=== PATIENT | male | born 1965 | race African-American/Black ===

== ENCOUNTER 2017-03-31 06:17 | Day surgery (SDC) | payer OTHER ==
[2017-03-31 07:24] LABS: HEMATOCRIT 38.5 % (42.0-54.0); MCH 31.7 pg (26.0-34.0); MCHC 33.8 g/dL (31.0-37.0); MCV 93.9 fL (80.0-100.0); MEAN PLATELET VOLUME 9.7 fL (7.4-10.4); RBC 4.1 10x6/uL (4.20-6.10); RDW 14.7 % (11.5-14.5); WBC 7.4 10x3/uL (4.8-10.8)
[2017-03-31] MEDS ORDERED: HYZAAR 100-12.51 TAB PO (07:28)
[2017-03-31] MEDS ORDERED: ENDOCET 10-3251 TAB PO (07:28)
[2017-03-31] MEDS ORDERED: K-DUR20 MEQ PO (07:29)
[2017-03-31] MEDS ORDERED: ZANTAC300 MG PO (07:29)
[2017-03-31] MEDS ORDERED: FUROSEMIDE20 MG PO (07:29)
[2017-03-31] MEDS ORDERED: METFORMIN HCL500 M1 PO (07:29)
[2017-03-31] MEDS ORDERED: PROTONIX40 MG PO (07:30)
[2017-03-31] MEDS ORDERED: LIPITOR10 MG PO (07:31)
[2017-03-31 07:37] VITALS: BP 126/84; BMI 35.5
[2017-03-31] MEDS ORDERED: METHOTREXATE2.5 MG PO (07:39)
[2017-03-31] MEDS ORDERED: FOLIC ACID1 MG PO (07:40)
[2017-03-31 07:41] LABS: CALCIUM 8.9 mg/dL (8.5-10.1); CARBON DIOXIDE 26.9 mmol/L (21.0-32.0); CREATININE - SERUM 1.2 mg/dL (0.6-1.3); POTASSIUM - SERUM 3.9 mmol/L (3.5-5.1)
--- NOTE | 2017-03-31 09:10 | NUR ---
PT REC'D TO ROOM VIA STRETCHER, AWAKE, RESPONDS TO VERBAL STIMULI.
--- NOTE | 2017-03-31 09:30 | NUR ---
PT TOLERATED FULL LIQ DIET.
--- NOTE | 2017-03-31 10:00 | NUR ---
IV D/C'D CATH INTACT.
--- NOTE | 2017-03-31 10:10 | NUR ---
D/C INSTRUCTIONS EXPLAINED TO PT. VOICED UNDERSTANDING. COPIES OF ALL GIVEN. D/C'D HOME VIA W/C TO PRIVATE CAR.
--- NOTE | 2017-04-02 14:40 | OP ---
PATIENT NAME: ANAI LOVE MEDICAL RECORD: [id number] :61 LOCATION:D.OPS ADMISSION DATE: SURGEON: LEONOR LITTLEJOHN DO DATE OF OPERATION: 03/31/2017 PROCEDURE: EGD with biopsies. INDICATIONS FOR PROCEDURE: Epigastric abdominal pain, dysphagia, heartburn. SCOPE: Olympus video gastroscope. MEDICATIONS: Propofol 150 mg IV per anesthesia. ESTIMATED BLOOD LOSS: Minimal. COMPLICATIONS: None. FINDINGS: Informed consent was given. The patient was made comfortable with the above medication. After reaching an adequate level of sedation by slow IV push, the patient was placed on his left side. The endoscope was then advanced under direct visualization through the mouth to the third portion of the duodenum. The entire esophagus appeared normal. At the GE junction, there was very mild evidence of Wood classification A reflux-induced esophagitis. The endoscope was advanced beyond the GE junction into the stomach and retroflexed to view the cardia, where a small sliding type hiatal hernia was present. Within the fundus, cardia, and upper body of the stomach, there were some petechial spots and some congestion consistent with possible gastritis. Random biopsies were taken throughout the entire stomach to submit for histology and to rule out H. pylori. The endoscope was advanced beyond the pylorus into the duodenum where the bulb, and entire examined duodenum appeared normal. The endoscope was then withdrawn from the patient. The patient tolerated the procedure well and there were no complications. IMPRESSION: 1. Wood classification A reflux-induced esophagitis. 2. Small sliding hiatal hernia. 3. Possible gastritis, biopsies pending. PLAN AND RECOMMENDATIONS: 1. Discharge home when recovery parameters are met. 2. Follow up biopsy specimen results and treat if indicated. 3. Continue current medications including Protonix 40 mg daily in the a.m. and ranitidine 300 mg p.o. at bedtime. 4. Could consider Carafate tablets in addition to above medication if symptoms worsen. 5. Consider referral to general surgery for antireflux surgery. 6. Consider pH study to determine extent and severity of reflux events. TRANSINT:[id number] Voice Confirmation ID: [id number] DOCUMENT ID: [id number] OPERATIVE REPORT [id number] GAGANDEEP LOVEDILeonardo Orourke LEONOR LITTLEJOHN DO at 1440 CC: [id number] DICTATION DATE: 03/31/1700 BUSINESS CONTINUITY STRATEGY DIRECTOR: 03/31/17 1125 [facility] [place] 03/31/17 [place] [id number] [place] [id number]
== END 2017-03-31 10:10 | disposition home or self-care (01) ==
LOC: D.OPS 06:17
PROVIDERS: Anesthesiology
DX: K21.0 Gastro-esophageal reflux disease with esophagitis (principal); K44.9 Diaphragmatic hernia without obstruction or gangrene; R13.10 Dysphagia, unspecified; R10.13 Epigastric pain; F17.200 Nicotine dependence, unspecified, uncomplicated; I10 Essential (primary) hypertension; E11.9 Type 2 diabetes mellitus without complications; G47.30 Sleep apnea, unspecified; M06.9 Rheumatoid arthritis, unspecified; Z01.812 Encounter for preprocedural laboratory examination

== ENCOUNTER 2017-04-07 06:57 | Day surgery (SDC) | payer OTHER ==
[~2017-04-07 06:57] MED LIST: ENDOCET 10-3251 TAB PO; FOLIC ACID1 MG PO; FUROSEMIDE20 MG PO; HYZAAR 100-12.51 TAB PO; K-DUR20 MEQ PO; LIPITOR10 MG PO; METFORMIN HCL500 M1 PO; METHOTREXATE2.5 MG PO; PROTONIX40 MG PO; ZANTAC300 MG PO
[2017-04-07 07:36] VITALS: BP 143/96; BMI 35.5
[2017-04-07 07:47] LABS: HEMATOCRIT 35.8 % (42.0-54.0); HEMOGLOBIN 12.1 g/dL (13.5-17.5); MCH 31.5 pg (26.0-34.0); MCHC 33.8 g/dL (31.0-37.0); MCV 93.2 fL (80.0-100.0); MEAN PLATELET VOLUME 10.3 fL (7.4-10.4); RBC 3.84 10x6/uL (4.20-6.10); RDW 14.7 % (11.5-14.5)
[2017-04-07 07:59] LABS: ANION GAP 13.8 mmol/L (8-16); CALCIUM 8.8 mg/dL (8.5-10.1); CARBON DIOXIDE 26.9 mmol/L (21.0-32.0); CREATININE - SERUM 1.3 mg/dL (0.6-1.3); POTASSIUM - SERUM 3.7 mmol/L (3.5-5.1)
--- NOTE | 2017-04-07 09:55 | NUR ---
0956 DISCHARGE INSTRUCTIONS COMPLETE. PT HAS NO QUESTIONS OR CONCERNS AT THIS TIME. NO PRESCRIPTIONS GIVEN. PT ESCORTED OUT BY VOLUNTEER.
--- NOTE | 2017-04-08 09:09 | OP ---
PATIENT NAME: ANAI LOVE MEDICAL RECORD: [id number] :61 LOCATION:D.OPS ADMISSION DATE: SURGEON: LEONOR LITTLEJOHN DO DATE OF OPERATION: 04/07/2017 PROCEDURE: Colonoscopy with polypectomy. INDICATIONS FOR PROCEDURE: Colorectal cancer screening. SCOPE: Olympus video pediatric colonoscope. MEDICATIONS: Propofol 500 mg IV per anesthesia. WITHDRAWAL TIME: 16 minutes. ESTIMATED BLOOD LOSS: Minimal. COMPLICATIONS: None. FINDINGS: Informed consent was given. The patient was made comfortable with the above medication. After reaching an adequate level of sedation by slow IV push, the patient was placed on his left side. A digital rectal examination was performed and was normal. The endoscope was then advanced under direct visualization through the rectum to the terminal ileum. The scope was slowly withdrawn and the mucosa was carefully examined. The prep quality was good. There were a total of 5 polyps removed on this examination. The first was located in the cecum. It was a benign appearing sessile polyp measuring approximately 4 mm in diameter. It was removed using a cold snare in 1 piece and completely retrieved. In the descending colon, there was a benign appearing sessile polyp, which measured approximately 4 mm in diameter. It was removed using hot forceps in 1 piece and completely retrieved. In the rectosigmoid colon, there were 3 benign-appearing sessile polyps, which ranged in size from 3 mm to 6 mm in diameter. They were all removed using a hot snare in 1 piece and completely retrieved. In the descending colon and sigmoid colon, there was mild diverticulosis consisting of a few small mouth diverticula. Retroflexion was performed in the rectum with visualization of medium sized internal hemorrhoids without bleeding. The scope was then unretroflexed and withdrawn from the patient. The patient tolerated the procedure well and there were no complications. IMPRESSION: 1. Mild diverticulosis. 2. Five separate polyps removed as described above. 3. Internal hemorrhoids. PLAN AND RECOMMENDATIONS: 1. Discharge home when recovery parameters are met. 2. Follow up biopsy specimen results. 3. High fiber diet. 4. Continue current medications. 5. Recall colonoscopy in 3 years for surveillance based on a personal history of polyps. TRANSINT:[id number] Voice Confirmation ID: [id number] DOCUMENT ID: [id number] OPERATIVE REPORT [id number] ANAI LOVE LEONOR LITTLEJOHN DO at 0909 CC: [id number] DICTATION DATE: 04/07/17 0901 SECURITIES SALES ASSOCIATE: 04/07/17 1126 [facility] 04/07/17 [place] [address] [place] [address]
== END 2017-04-07 09:56 | disposition home or self-care (01) ==
LOC: D.OPS 06:57
PROVIDERS: Internal Medicine Gastroenterology
DX: Z12.11 Encounter for screening for malignant neoplasm of colon (principal); K63.5 Polyp of colon; K64.8 Other hemorrhoids; K57.30 Diverticulosis of large intestine without perforation or abscess without bleeding; F17.200 Nicotine dependence, unspecified, uncomplicated; I10 Essential (primary) hypertension; E11.9 Type 2 diabetes mellitus without complications; J44.9 Chronic obstructive pulmonary disease, unspecified; K21.9 Gastro-esophageal reflux disease without esophagitis; Z01.812 Encounter for preprocedural laboratory examination

== ENCOUNTER 2019-01-28 19:42 | Inpatient (IN) | payer MEDICAID ==
[~2019-01-28] VITALS: Ht 172.7 cm; Wt 98.2 kg
--- NOTE | ~2019-01-28 | HEMODYNAMI ---
PATIENT:ANAI LOVE MEDICAL RECORD: [id number] : 61 [id number] ADMISSION DATE: 01/28/19 Generatedon:01/29/201911:17 Patient name: ANAI LOVE Patient #: [id number] SSN: [id number] : 1965 Date of study: 01/29/2019 Page: Of Hemodynamic Procedure Report Patient Data Patient Demographics Procedure consent was obtained First Name: ANAI Gender: Male Last Name: KATE : 1965 [facility] Initial: J Age: 53 year(s) Patient #: [id number] Race: Black SSN: [id number] Additional ID: [id number] Contact details Address: [address] [place] [address] State: [place] City: [place] Zip code: [address] Past Medical History Allergies: No known allergies Admission Admission Data Admission Date: 01/28/2019 Admission Time: 20:28 Arrival Date: 01/29/2019 Arrival Time: 0:00 Admit Source: Emergency Insurance Payor: Medicaid department [facility] #: [id number] Room #: D.2124 Height (in.): 67.72 BSA: 2.11 (m2) Height (cm.): 172 BMI: 33.13 (kg/m2) Weight (lbs.): 216.05 Weight (kg.): 98 Lab Results Lab Result Date: 01/29/2019 Lab Result Time: 4:35 Biochemistry Name Units Result Min Max BUN mg/dl 11 --(-*--)-- 7 18 Creatinine mg/dl 1 --(--*-)-- 0.6 1.3 eGFR ml/min 90 --(*---)-- 90 120 AM CBC Name Units Result Min Max Hematocrit % 31 *-(----)-- 42 54 Hemoglobin g/dl 10.4 *-(----)-- 13.5 17.5 Procedure Procedure Types Cath Procedure Diagnostic Procedure [facility] w/Coronaries Procedure Description Procedure Date Procedure Date: 01/29/2019 Procedure Start Time: 11:04 Procedure End Time: 11:17 Procedure Staff Name Function Donato Willson MD Performing Physician Grace Shane RT Monitor Flex Suazo RT Scrub Cameron Mooney RN Nurse Procedure Data Cath Procedure Fluoroscopy Diagnostic fluoroscopy Total fluoroscopy Time: 2.6 time: 2.6 min min Diagnostic fluoroscopy Total fluoroscopy dose: 606 dose: 606 mGy mGy Contrast Material Contrast Material Type Amount (ml) Isovue 300 53 Entry Location Entry Primary Successful Side Size Upsize Upsize Entry Closure Davis ccessful Closure Location (Fr) 1 (Fr) 2 (Fr) Remarks Device Remarks Radial Right 6 Fr Mechanical artery Short Compression Estimated blood loss: 5 ml Diagnostic catheters Device Type Used For End Catheter Placement DIAGNOSTIC Shade 110cm Procedure 5Fr catheter ([id number]) DIAGNOSTIC [place] 110cm 5 Procedure Fr catheter ([id number]) Procedure Complications No complications Procedure Medications Medication Administration Route Dosage Oxygen etCO2 Nasal cannula 2 l/min Lidocaine 2% added to field 20 Heparin Flush Bag added to field 2 bags (1000units/500ml NS) 0.9% NaCl I.V. 100 ml/hr Versed I.V. 1 mg Fentanyl I.V. 50 mcg Radial Cocktail I.A. 1 syringe (Verapamil 2mg/Nitro 400mcg/Heparin 1500units) Versed I.V. 1 mg Fentanyl I.V. 50 mcg Fentanyl I.V. 50 mcg Versed I.V. 1 mg Fentanyl I.V. 50 mcg Hemodynamics Rest BSA: 2.11 (m2) HGB: 10.4 (g/dl) O2 Consumption: Estimated: 269.01 (ml/min) O2 Co nsumption indexed: Estimated:127.49 (ml/min/m) Heart Rate: 94 (bpm) Pressure Samples Time Site Value (mmHg) Purpose Heart Use Rate(bpm) 11:06 LV 114/1,10 Snapshot 64 11:06 LV 117/8,4 Snapshot 84 Gradients Valve Time Site Site Mean SEP/DFP Peak To Heart Use 1 2 (mmHg) (sec/min) Peak Rate (mmHg) (bpm) Aortic 11:07 LV AO 39 Snapshots Pre Cath Intra NCS Post Cath Vital Signs Time Heart Resp SPO2 etCO2 NIBP (mmHg) Rhythm Pain Sedation Rate (ipm) (%) (mmHg) Status Level (bpm) 10:52:05 87 38 100 33.8 151/102(122) NSR 0 (11) 10(A) , No pain 10:56:15 97 19 100 32.2 154/91(122) NSR 0 (11) 10(A) , No pain 11:00:25 88 15 98 29.2 160/96(109) NSR 0 (11) 10(A) , No pain 11:04:39 95 17 100 36.7 147/86(122) NSR 0 (11) 9(A) , No pain 11:08:53 101 16 100 35.2 127/74(101) NSR 0 (11) 9(A) , No pain 11:12:57 94 17 100 35.3 129/81(102) NSR 0 (11) 10(A) , No pain 11:17:03 90 15 33.7 129/80(94) NSR 0 (11) 9(A) , No pain Medications Time Medication Route Dose Verified Delivered Reason Notes Effectiveness by by 10:55:57 Oxygen etCO2 2 l/min Donato Buffie used for Nasal Demetris Mooney RN procedure cannula 10:56:04 Lidocaine 2% added 20ml Donato Donato for local to vial Demetris Willson MD anesthetic field 10:56:10 Heparin Flush added 2 bags Donato Donato used for Bag to Demetris Willson MD procedure (1000units/500ml field NS) 10:56:20 0.9% NaCl I.V. 100 Donato Buffie Per ml/hr Demetris Mooney RN physician 10:58:38 Versed I.V. 1 mg Donato Buffie for sedation Demetris Mooney RN 10:58:44 Fentanyl I.V. 50 mcg Donato Buffie for sedation Demetris Mooney RN 11:02:21 Versed I.V. 1 mg Donato Donato for sedation Demetris Willson MD 11:02:24 Fentanyl I.V. 50 mcg Donato Donato for sedation Demetris Willson MD 11:05:33 Radial Cocktail I.A. 1 Donato Donato for (Verapamil syringe Demetris Willson MD vasodilation 2mg/Nitro 400mcg/Heparin 1500units) 11:07:56 Fentanyl I.V. 50 mcg Donato Donato for sedation Demetris Willson MD 11:10:08 Versed I.V. 1 mg Donato Donato for sedation Demetris Willson MD 11:11:12 Fentanyl I.V. 50 mcg Donato Donato for sedation Demetris Willson MD Procedure Log Time Note 10:15:07 Cameron Mooney RN sent for patient. Start room use. 10:34:18 ACC Patient presents with Unstable Angina CCS Anginal Class 4--Inability to carry out any physical activity w/o angina. Angina may occur at rest. 10:34:21 ACCPatient has been prescribed/administered the following anti-anginal medication within the last 2 weeks: ARB 10:34:30 Insurance Payor : Medicaid 10:34:42 Arrival Date: 01/29/2019 12:00:00 AM 10:34:42 Admit Source: Emergency department 10:34:47 Patient Weight : 216.05 lbs 10:34:49 Patient Height : 67.72 inches 10:35:45 Lab Result : BUN 11 mg/dl 10:35:45 Lab Result : Hemoglobin 10.4 g/dl 10:35:45 Lab Result : Hematocrit 31 % 10:35:45 Lab Result : Creatinine 1 mg/dl 10:35:45 Lab Result : eGFR AM 90 ml/min 10:35:49 Procedure Status Urgent Heart Cath (IP). 10:36:08 Time tracking: Regular hours (M-F 7:00 - 5:00) 10:36:11 Plan of Care:Hemodynamics will remain stable., Cardiac rhythm will remain stable., Comfort level will be maintained., Respiratory function will remain adequate., Patient/ family verbilizes understanding of procedure., Procedure tolerated without complication., Recovers from procedure without complications.. 10:36:24 H&P Date Dictated: 01/28/2019 Within 30 days and on chart.. 10:36:27 Lab results completed and on chart. 10:40:54 Patient received from Med II to CCL 1 Alert and oriented. Tansferred to table in Supine position. 10:40:56 Warm blankets applied, and claudia hugger turned on for patient comfort. 10:40:57 Signed procedure consent form obtained from patient. 10:40:58 Correct patient and procedure confirmed by team. 10:40:58 ECG and BP/O2 sat monitors applied to patient. 10:40:59 Pre-procedure instructions explained to patient. 10:40:59 Pre-op teaching completed and patient verbalized understanding. 10:41:01 Family in waiting room. 10:41:03 Patient NPO since Midnight. 10:41:08 Patient allergic to No known allergies 10:51:01 Vital chart was started 10:51:16 Baseline sample Acquired. 10:51:56 Rhythm: sinus rhythm 10:51:57 Full Disclosure recording started 10:52:00 Is patient on blood thinner?No 10:52:01 Patient diabetic? Yes. 10:52:02 If diabetic: On Metformin? Yes 10:52:05 If on Metformin: Last Dose? 01/27/2019 10:52:12 Previous problem with sedation/anesthesia? No ? 10:52:15 Snore? Yes 10:52:16 Sleep apnea? Yes 10:52:18 Deviated septum? No 10:52:18 Opens mouth fully? Yes 10:52:19 Sticks out tongue? Yes 10:52:22 Airway obstruction? Yes COPD 10:52:25 Dentures? Yes IN 10:52:28 Pre procedure: right dorsailis pedis pulse 1+ Palpable, but thready & weak; easily obliterated 10:52:30 Modified Nitesh's test Ulnar < 7 seconds 10:52:32 Patient pain scale 0/10 ?. 10:52:38 IV patent on arrival in left forearm with 0.9% NaCl at O. 10:52:43 Right Radial & Right Groin area was prepped with chlora-prep and draped in sterile fashion 10:52:44 Alarms reviewed by R. N. 10:52:44 Sharps counted by scrub and verified by R.N. 10:52:47 Use device set Radial Dx or PCI 10:52:48 ACIST Syringe (54422) opened to sterile field. 10:52:48 Medline Cath Pack ([id number]) opened to sterile field. 10:52:49 Bag Decanter () opened to sterile field. 10:52:50 ACIST Hand Control (08165) opened to sterile field. 10:52:50 ACIST Manifold (13318) opened to sterile field. 10:52:51 Tegaderm 4 x 4 (1626W) opened to sterile field. 10:52:52 MBrace Wrist Support ([id number]) opened to sterile field. 10:52:52 NEEDLE Cook 21G 4cm Radial (H69054) opened to sterile field. 10:52:53 SHEATH 6FR RAIN (8637887) opened to sterile field. 10:52:54 EMERALD Guide Wire (378-764) opened to sterile field. 10:55:57 Oxygen 2 l/min etCO2 Nasal cannula was administered by Cameron Mooney RN; used for procedure; 10:56:04 Lidocaine 2% 20ml vial added to field was administered by Donato Willson MD; for local anesthetic; 10:56:10 Heparin Flush Bag (1000units/500ml NS) 2 bags added to field was administered by Donato Willson MD; used for procedure; 10:56:20 0.9% NaCl 100 ml/hr I.V. was administered by Cameron Mooney RN; Per physician; 10:57:33 --------ALL STOP TIME OUT------ 10:57:33 Final Timeout: patient, procedure, and site verified with staff and physician. All members of the team are in agreement. 10:57:36 Right Radial & Right Groin site verified by team. 10:57:40 Fire Safety Assessment: A--An alcohol-based skin anteseptic being used preoperatively., C--Open oxygen or nitrous oxide is being used., D--An ESU, laser, or fiber-optic light is being used. 10:57:44 Physical assessment completed. ASA score P 2 - A patient with mild systemic disease as per Donato Willson MD. 10:57:46 1) 90+ Normal kidney functon but urine findings or structural abnormalities or genetic trait point to kidney disease. 10:57:49 Maximum allowable contrast dose (3.7 X eGFR X 0.75)250 ml. 10:57:54 Sedation plan: IV Moderate Sedation Medication:Versed, Fentanyl 10:58:38 Versed 1 mg I.V. was administered by Cameron Mooney RN; for sedation; 10:58:44 Fentanyl 50 mcg I.V. was administered by Cameron Mooney RN; for sedation; 11:02:21 Versed 1 mg I.V. was administered by Donato Willson MD; for sedation; 11:02:24 Fentanyl 50 mcg I.V. was administered by Donato Willson MD; for sedation; 11:03:19 Zero performed for pressure channel P1 11:03:54 Zero performed for pressure channel P1 11:04:00 Procedure started. 11:04:04 Local anesthetic to right radial artery with Lidocaine 2% by Donato Willson MD.INITIAL ACCESS ONLY 11:04:47 A 6 Fr Short sheath was inserted into the Right Radial artery 11:05:12 A DIAGNOSTIC Shade 110cm 5Fr catheter (793600) was advanced over the wire and used for Procedure. 11:05:33 Radial Cocktail (Verapamil 2mg/Nitro 400mcg/Heparin 1500units) 1 syringe I.A. was administered by Donato Willson MD; for vasodilation; 11:05:57 LV gram done using NUNES 11:06:00 Injector settings: Ml/sec: 5, Volume: 15, 11:06:31 LV hemodynamics recorded. 11:06:48 EF : 55 % 11:07:40 RCA angiography performed. 11:07:56 Fentanyl 50 mcg I.V. was administered by Donato Willson MD; for sedation; 11:08:20 Catheter exchanged over wire. 11:08:36 UNABLE TO ENGAGE IN THE LCA 11:09:02 A DIAGNOSTIC [place] 110cm 5 Fr catheter (663674) was advanced over the wire and used for Procedure. 11:10:08 Versed 1 mg I.V. was administered by Donato Willson MD; for sedation; 11:10:49 LCA angiography performed. 11:11:07 ACCDominant side:Left 11:11:08 Catheter removed. 11:11:12 Fentanyl 50 mcg I.V. was administered by Donato Willson MD; for sedation; 11:12:13 TR BAND Standard ([id number]) opened to sterile field. 11:12:37 Procedure ended.(Physican Out) 11:12:46 Fluoroscopy time 02.60 minutes. 11:12:49 Fluoroscopy dose: 606 mGy 11:12:49 Flurop Dose total: 606 11:12:55 Dose Area Product 97027 mGy/cm. 11:12:59 Contrast amount:Isovue 300 53ml. 11:13:13 Sheath removed intact; hemostasis achieved with Mechanical Compression to the Right Radial artery. 11:13:44 Maximum allowable dose exceeded? No. 11:13:45 Sharps counted by scrub and verified by R.N. 11:13:49 TR band inflated with 10cc of air. 11:13:52 Post-procedure physical assessment completed. ASA score P 2 - A patient with mild systemic disease as per Donato Willson MD. 11:13:54 Post procedure rhythm: sinus rhythm 11:13:57 Estimated blood loss: 5 ml 11:13:58 Post procedure instruction explained to patient.Patient verbalizes understanding. 11:13:58 Patient needs reinforcement of post procedure teaching. 11:16:46 Procedure and supply charges have been captured, reviewed, submitted and are correct. 11:16:48 Procedure Complication : No complications 11:16:50 Vital chart was stopped 11:16:50 See physician's report for complete and final results. 11:16:54 Report given to [facility]. 11:17:01 Patient transfered to [facility] with Bed. 11:17:03 Procedure ended. 11:17:03 Full Disclosure recording stopped 11:17:07 End room use (Document Last) Device Usage Item Name Manufacture Quantity Catalog Hospital Part Current Minima l Lot# / Number Charge Number Stock Stock Serial# Code ACIST Acist 1 51482 514331 [id number] 345482 20 Syringe Medical (94592) Systems Inc Medline Medline 1 [id number] 327080 62554 396279 5 Cath Pack ([id number]) Bag Microtek 1 379345 91191 054239 5 Decanter Medical Inc. () ACIST Hand Acist 1 61677 499417 088956 932739 5 Control Medical (91727) Systems Inc ACIST Acist 1 64282 570997 768210 838831 5 Manifold Medical (95238) Systems Inc Tegaderm 4 3M 1 1626W 302979 484708 382472 5 x 4 (1626W) MBrace Advanced 1 140-0250-00 382420 25551 977237 5 Wrist Vascular Support Dynamics ([id number]) NEEDLE Cook Cook Medical 1 [id number] 440028 679162 627831 5 21G 4cm Radial (B04761) SHEATH 6FR Cardinal 1 1496922 581834 1104691 156048 5 [facility] (0619390) EMERALD Cardinal 1 502-455 055995 222086 862397 5 Guide Wire [facility] (800-424) DIAGNOSTIC Terumo 1 40-2023 267468 119583 568919 5 Shade 110cm 5Fr catheter (440986) DIAGNOSTIC Terumo 1 40 905963 019486 000781 5 [place] 110cm 5 Fr catheter (591768) TR BAND Terumo 1 [id number] 610877 542623 401714 40 Standard ([id number]) Signature Audit [place] Stage Time Signature Unsigned Intra-Procedure 01/29/2019 Grace Shane 11:17:22 AM RT(R) Signatures Performing Physician : Signature : Donato Willson MD Date : Time : Monitor : Grace Shane Signature : RT Date : Time : Nurse : Cameron Mooney RN Signature : Date : Time : [address] [place] [address]
[2019-01-28] MEDS ORDERED: OMEPRAZOLE20 M1 PO (19:48)
--- NOTE | 2019-01-28 19:59 | NUR ---
BLOOD DRAWN AT IV START AND SENT TO LAB.
[2019-01-28 20:03] LABS: BASOPHILS 0.3 % (0-2); HEMATOCRIT 35.3 % (42.0-54.0); IMMATURE GRANULOCYTES 0.7 % (0-5); LYMPHOCYTES 35.1 % (15-50); MCH 29.9 pg (26.0-34.0); MEAN PLATELET VOLUME 10.9 fL (7.4-10.4); MONOCYTES 7.7 % (2-11); NEUTROPHILS 53.2 % (40-80); PLATELET COUNT 281 10x3/uL (130-400); RBC 4.01 10x6/uL (4.20-6.10); RDW 14.8 % (11.5-14.5); WBC 11.2 10x3/uL (4.8-10.8)
[2019-01-28 20:12] LABS: APTT 24.9 SECONDS (22.8-39.4); INR 1.02 (0.85-1.17); PROTIME 12.9 SECONDS (11.6-15.0)
[2019-01-28 20:17] LABS: ALBUMIN 3.2 g/dL (3.4-5.0); ALKALINE PHOSPHATASE 106 U/L (46-116); ALT (SGPT) 16 U/L (10-68); BILIRUBIN - TOTAL 0.29 mg/dL (0.2-1.3); CALC OSMOLALITY 277 mosm/kg (275-300); CALCIUM 8.6 mg/dL (8.5-10.1); CARBON DIOXIDE 26.3 mmol/L (21.0-32.0); CHLORIDE - SERUM 101 mmol/L (98-107); CREATININE - SERUM 0.9 mg/dL (0.6-1.3); GLUCOSE 130 mg/dL (74-106); SODIUM 139 mmol/L (136-145); UREA NITROGEN 7 mg/dL (7-18); eGFR NON AFRICAN AMERICAN > 90 mL/min (90-120)
[2019-01-28 20:25] LABS: LIPASE 195 U/L (73-393); PRO BNP 11 pg/mL (0-125); TROPONIN-I < 0.017 ng/mL (0.000-0.060)
--- NOTE | 2019-01-28 20:55 | NUR ---
TO ROOM FROM ER VIA WC AND UP AND AMBULATING AROUND ROOM AND DENIES CP ASKING FOR FOOD I WILL MAKE NPO AT MN SKIN WARM AND DRY LCTA WITH NTG PASTE TO CHEST WALL BED IS LOW AND LOCKED WITH LOTSS OF FAMILY PRESENT AT THIS TIME
[2019-01-28 23:22] LABS: CKMB 1.1 U/L (0.0-3.6); CREATINE KINASE 119 UL (21-232)
[2019-01-28 23:26] LABS: TROPONIN-I < 0.017 ng/mL (0.000-0.060)
[2019-01-28 23:45] VITALS: BP 166/91; Ht 172.7 cm; Wt 98.2 kg
[2019-01-29] VITALS: BP 107/59
[2019-01-29 04:30] VITALS: BP 112/67
[2019-01-29 04:53] LABS: BASOPHILS 0.1 % (0-2); HEMOGLOBIN 10.4 g/dL (13.5-17.5); IMMATURE GRANULOCYTES 0.6 % (0-5); LYMPHOCYTES 32.7 % (15-50); MCH 29.5 pg (26.0-34.0); MCHC 33.5 g/dL (31.0-37.0); MCV 88.1 fL (80.0-100.0); MEAN PLATELET VOLUME 10.4 fL (7.4-10.4); MONOCYTES 8.7 % (2-11); NEUTROPHILS 53.9 % (40-80); RBC 3.52 10x6/uL (4.20-6.10); RDW 14.7 % (11.5-14.5); WBC 8.8 10x3/uL (4.8-10.8)
[2019-01-29 04:54] LABS: PLATELET COUNT 208 10x3/uL (130-400)
[2019-01-29 05:22] LABS: CALC OSMOLALITY 282 mosm/kg (275-300); CALCIUM 8.4 mg/dL (8.5-10.1); CARBON DIOXIDE 28.1 mmol/L (21.0-32.0); CHLORIDE - SERUM 105 mmol/L (98-107); CKMB 1.4 U/L (0.0-3.6); CREATINE KINASE 112 UL (21-232); GLUCOSE 146 mg/dL (74-106); MAGNESIUM - SERUM 1.7 mg/dL (1.8-2.4); PHOSPHOROUS 3.8 mg/dL (2.5-4.9); POTASSIUM - SERUM 3.7 mmol/L (3.5-5.1); SODIUM 141 mmol/L (136-145); TROPONIN-I < 0.017 ng/mL (0.000-0.060); UREA NITROGEN 11 mg/dL (7-18); eGFR NON AFRICAN AMERICAN 82 mL/min (90-120)
--- NOTE | 2019-01-29 07:30 | NUR ---
ASSESSMENT COMPLETED. ALERT AND ORIENTED. TELEMERTY SHOWS ST. RIGHT AC SL. NPO FOR CATH. DENIES ANY NEEDS. RIGHT AC SL. . SR UP TIMES 2 WITH CALL LIGHT IN REACH
--- NOTE | 2019-01-29 09:00 | NUR ---
PRE OPED FOR COOK CHILL TECHNICIAN. TO LAB PER BED
[2019-01-29 09:04] VITALS: BP 132/77
--- NOTE | 2019-01-29 11:30 | NUR ---
BACK FROM AUTO SERVICE ADVISOR. TR BAND TO RIGHT WRIST. NO BLEEDING OR SWELLING . FINGERS WARM. SR UP WITH CALL LIGHT IN REACH. WILL MONITOR
[2019-01-29 12:20] VITALS: BP 152/83
[2019-01-29] MEDS ORDERED: PROTONIX40 MG PO (13:32)
[2019-01-29] MEDS ORDERED: CARAFATE1 G PO (13:33)
--- NOTE | 2019-01-29 15:57 | MORECARE ---
CASE MANAGEMENT DISCHARGE SUMMARY PATIENT: ANAI LOVE UNIT: [id number] ADM DATE: 01/28/19 AGE: 53 : [birth year] SEX: M ROOM/BED: D.5694 AUTHOR: HERLINDA,DOC PHYSICIAN: REFERRING PHYSICIAN: URIEL CONTRERAS MD DATE OF SERVICE: 01/29/19 Discharge Plan Patient Name: ANAI LOVE Facility: [facility]:[place] : 1965 Planned Disposition: Home Anticipated Discharge Date: 01/29/19 Discharge Date: Expected LOS: 1 Initial Reviewer: [email or web address] Initial Review Date: 01/29/2019 Generated: 01/29/19 4:56 pm Comments DCP- Discharge Planning Updated by [email or web address]: Jd Guy on 01/29/19 2:[address] Patient Name: ANAI LOVE Admission Status: ER Accout number: [id number] Admission Date: 01-28-2019 : 1965 Admission Diagnosis:CHEST PAIN, UNSPECIFIED Attending: URIEL CONTRERAS Current LOS: 1 Anticipated DC Date: 01-29-2019 Planned Disposition: Home Primary Insurance: [place]ICAID [place] Discharge Planning Comments: CM MET WITH PT IN ROOM TO DISCUSS DISCHARGE PLANNING AND NEEDS. PT REPORTS LIVING AT HOME INDEPENDENTLY HOME ALONE. PT HAS CANE AND WALKER WITH NO MEDICAL EQUIPMENT PROVIDER PREFERENCE. PT HAS NO OUTSIDE SERVICES ASSISTING IN THE HOME. CM DISCUSSED AVAILABILITY OF HOME HEALTH, REHAB SERVICES AND MEDICAL EQUIPMENT. PT DENIES DISCHARGE NEEDS, REPORTS HIS SISTER WILL PICK HIM UP FOR DISCHARGE HOME. Sales Department Manager: Jd Guy DCPIA - Discharge Planning Initial Assessment Updated by [email or web address]: Jd Guy on 01/29/19 3:44 pm * Is the patient Alert and Oriented? Yes * How many steps to enter\exit or inside your home? * PCP DR. TAM * Pharmacy [facility] * Preadmission Environment Home Alone * ADLs Independent * Equipment Cane Walker * Other Equipment NO MEDICAL EQUIPMENT PROVIDER PREFERENCE * List name and contact numbers for known caregivers / representatives who currently or will assist patient after discharge: TARA ROSENDO, FRIEND, * Verbal permission to speak to the caregivers and representatives has been obtained from the patient. N/A * Community resources currently utilized None * Please name any agencies selected above. NONE * Additional services required to return to the preadmission environment? No * Can the patient safely return to the preadmission environment? Yes * Has this patient been hospitalized within the prior 30 days at any hospital? No Patient Name: ANAI LOVE Page 32172 at 1557 All edits/amendments must be made on the electronic document DICTATION DATE: 01/29/191555 PERSONAL CARE ATTENDANT: CLARE 01/29/191555 RPT#: [id number] DC DATE: STATUS: ADM IN [facility] [address] [place] [address] END OF REPORT
--- NOTE | 2019-01-29 16:00 | NUR ---
PT DISCHARGED. CATH SITE WITH DRSG DRY AND INTACT. INSTRUCTIONS GIVEN TO PT AND FAMILY. TO PRIVATE CAR PER WHEELCHAIR
== END 2019-01-29 16:03 | disposition home or self-care (01) | DRG 287 ==
LOC: D.ER 19:42 → D.M2 20:28
PROVIDERS: Family Medicine; Internal Medicine Cardiovascular Disease; ADMIT Internal Medicine Nephrology; ATTEND Internal Medicine Nephrology
PROC: B2151ZZ Fluoroscopy of Left Heart using Low Osmolar Contrast (ICD-10-PCS; 2019-01-29)
PROC: 4A023N7 Measurement of Cardiac Sampling and Pressure, Left Heart, Percutaneous Approach (ICD-10-PCS; 2019-01-29)
PROC: B2111ZZ Fluoroscopy of Multiple Coronary Arteries using Low Osmolar Contrast (ICD-10-PCS; principal; 2019-01-29 10:15)
DX: R07.89 Other chest pain (principal); F17.213 Nicotine dependence, cigarettes, with withdrawal; I10 Essential (primary) hypertension; E11.9 Type 2 diabetes mellitus without complications; D64.9 Anemia, unspecified; K21.9 Gastro-esophageal reflux disease without esophagitis

== ENCOUNTER 2020-11-15 19:14 | Emergency (ER) | payer MEDICAID ==
[~2020-11-15] VITALS: Ht 172.7 cm; Wt 93.9 kg
[~2020-11-15 19:14] MED LIST changes: +CARAFATE1 G PO; +OMEPRAZOLE20 M1 PO
[2020-11-15 19:50] VITALS: Ht 172.7 cm; Wt 93.9 kg
[2020-11-15 20:28] LABS: BASOPHILS 0.7 % (0-2); EOSINOPHILS 1.8 % (0-7); HEMOGLOBIN 15.4 g/dL (13.5-17.5); LYMPHOCYTES 23.8 % (15-50); MCH 31.1 pg (26.0-34.0); MCHC 33.5 g/dL (31.0-37.0); MCV 92.9 fL (80.0-100.0); MEAN PLATELET VOLUME 9.1 fL (7.4-10.4); MONOCYTES 10.1 % (2-11); NEUTROPHILS 63.6 % (40-80); PLATELET COUNT 186 10x3/uL (130-400); RBC 4.96 10x6/uL (4.20-6.10); RDW 16.2 % (11.5-14.5); WBC 6.9 10x3/uL (4.8-10.8)
[2020-11-15 20:43] LABS: BILIRUBIN NEGATIVE (NEGATIVE); KETONE NEGATIVE (NEGATIVE); NITRITE NEGATIVE (NEGATIVE); UROBILINOGEN NORMAL mg/dL (< 2)
[2020-11-15 20:45] LABS: BACTERIA MODERATE HPF (NONE SEEN)
[2020-11-15 22:26] LABS: ALBUMIN 3.8 g/dL (3.4-5.0); ALKALINE PHOSPHATASE 62 U/L (30-120); ALT (SGPT) 194 U/L (10-68); AMYLASE - SERUM 42 U/L (25-115); BILIRUBIN - TOTAL 0.52 mg/dL (0.2-1.3); CALCIUM 10.2 mg/dL (8.5-10.1); CARBON DIOXIDE 33.3 mmol/L (21.0-32.0); CHLORIDE - SERUM 94 mmol/L (98-107); CREATININE - SERUM 1.2 mg/dL (0.6-1.3); LIPASE 106 U/L (73-393); PROTEIN - SERUM 8.6 g/dL (6.4-8.2); SODIUM 139 mmol/L (136-145); UREA NITROGEN 15 mg/dL (7-18); eGFR NON AFRICAN AMERICAN 66 mL/min (90-120)
[2020-11-15 22:28] LABS: CALC OSMOLALITY 284 mosm/kg (275-300); GLUCOSE 206 mg/dL (74-106)
[2020-11-15 22:31] LABS: POTASSIUM - SERUM 2.7 mmol/L (3.5-5.1)
[2020-11-15 22:44] LABS: TROPONIN-I < 0.017 ng/mL (0.000-0.060)
[2020-11-16] MEDS ORDERED: BACTRIM DS TAB1 EAC1 PO (00:22)
[2020-11-16] MEDS ORDERED: KLOR-CON/EF 2525 MEQ PO (00:23)
[2020-11-16 00:28] VITALS: BP 132/89
== END 2020-11-16 00:28 | disposition home or self-care (01) ==
LOC: D.ER 19:14
PROVIDERS: Emergency Medicine
DX: R10.9 Unspecified abdominal pain (principal); R51.9 Headache, unspecified; E11.65 Type 2 diabetes mellitus with hyperglycemia; N39.0 Urinary tract infection, site not specified; E87.6 Hypokalemia; K76.0 Fatty (change of) liver, not elsewhere classified; R74.01 Elevation of levels of liver transaminase levels; I10 Essential (primary) hypertension; J44.9 Chronic obstructive pulmonary disease, unspecified; K21.9 Gastro-esophageal reflux disease without esophagitis; Z72.0 Tobacco use; Z79.84 Long term (current) use of oral hypoglycemic drugs